=== PATIENT | male | born 1950 | race Two or more races ===

== ENCOUNTER 2020-05-07 08:02 | Inpatient (IN) | payer MEDICARE, MEDICAID ==
[2020-05-07] VITALS (18 sets, daily range): BP systolic 125–148; BP diastolic 74–87
[~2020-05-07] VITALS: Ht 170.2 cm; Wt 104.3 kg
[~2020-05-07 08:02] MED LIST: AMLODIPINE BESY10 MG ORAL; ASPIRIN EC81 MG ORAL; CRESTOR20 MG ORAL; DIOVAN80 MG ORAL; METOPROLOL SUCC25 MG ORAL; PROBIOTIC1 EAC5 PO; ceFAZolin sod 1 GM in NS 55 ML IVPB ONE
[2020-05-07] MEDS ORDERED: Meperidine 25mg/1ml Inj (FOR RIGORS ONLY) IV PRN (09:15)
[2020-05-07] MEDS ORDERED: Acetaminophen (Non formulary) 100 ML IV ONE (09:15)
[2020-05-07] MEDS ORDERED: HYDROcodone/Acetamin 7.5/325 tab ORAL PRN (09:15)
[2020-05-07] MEDS ORDERED: DiphenhydrAMINE 50mg/ml Inj IVP PRN (09:15)
[2020-05-07] MEDS ORDERED: Ketorolac 30mg Inj IV PRN ×2 (09:15)
[2020-05-07] MEDS ORDERED: Midazolam 2mg/2ml Inj IVP PRN (09:15)
[2020-05-07] MEDS ORDERED: oxyCODONE HCL/Acetaminophen 5/325mg ORAL PRN (09:15)
[2020-05-07] MEDS ORDERED: LORazepam Inj 2mg/ml 1ml IV PRN (09:15)
[2020-05-07] MEDS ORDERED: HYDROcodone/Acetamin 5/325 tab ORAL PRN (09:15)
[2020-05-07] MEDS ORDERED: Atropine Sulfate 0.4mg/ml inj IVP PRN (09:15)
[2020-05-07] MEDS ORDERED: LR 1000ml 1,000 ML IVLG SCH (09:15)
[2020-05-07] MEDS ORDERED: Metoclopramide 10mg/2ml Inj IVP PRN (09:15)
[2020-05-07] MEDS ORDERED: Labetalol 5mg/ml 20ml vial IV PRN (09:15)
[2020-05-07] MEDS ORDERED: fentaNYL 100 mcg/2 mL IV PRN (09:15)
--- NOTE | 2020-05-07 09:16 | Anethesia Preoperative Eval ---
Anesthesia Pre-op PMH/ROS General Date of Evaluation: May 07, 2020 Time of Evaluation: 09:34 Anesthesiologist: Trisha ASA Score: ASA 3 Mallampati Score Class I : Soft palate, uvula, fauces, pillars visible Class II: Soft palate, uvula, fauces visible Class III: Soft palate, base of uvula visible Class IV: Only hard plate visible Mallampati Classification: Class II Surgeon: Rashad Diagnosis: Abd Pain Surgical Procedure: TURP, TURBT Family History: no anesthesia problems Allergies: Coded Allergies: No Known Allergies (Unverified , 05/06/20) Medications: see eMAR Patient NPO?: Yes Past Medical History Cardiovascular: Reports: HTN, other - HL Gastrointestinal/Genitourinary: Reports: other - Prostate CA Other: obesity - BMI 37 Anesthesia Pre-op Phys. Exam Physician Exam Last Vital Signs Date Time Temp Pulse Resp B/P (MAP) Pulse Ox O2 Delivery O2 Flow Rate FiO2 05/07/20 08:54 Room Air 05/07/20 08:36 96.9 90 18 148/87 (107) 98 Constitutional: NAD Neurologic: CN 2-12 intact Cardiovascular: RRR Respiratory: CTA Gastrointestinal: S/NT/ND Airway Exam Mallampati Score: Class II ROM: limited Teeth: missing, intact Anesthesia Pre-op A/P Risk Assessment & Plan Assessment: ASA 3 Plan: GA, SED, GlideScope Status Change Before Surgery: No Pre-Antibiotics Dru Grams Ancef IV Time Given: 10:21 Tomasz Rico MD May 07, 2020 09:16
[2020-05-07] MEDS ORDERED: NS Irrig 1000ml ONE (09:34)
[2020-05-07] MEDS ORDERED: NS Irrig 3000ml IRRIG ONE ×8 (09:34→11:00)
[2020-05-07] MEDS ORDERED: LR 1000ml ONE (09:34)
[2020-05-07] MEDS ORDERED: Sterile Water Irrig 1000ml IRRIG ONE (09:34)
[2020-05-07] MEDS ORDERED: Iothalamate Meglumine 60% 50ML INJ ONE (09:38)
[2020-05-07] MEDS ORDERED: fentaNYL 100 mcg/2 mL IV ONE (09:44)
[2020-05-07] MEDS ORDERED: Midazolam 2mg/2ml Inj ONE (09:45)
[2020-05-07] MEDS ORDERED: Lidocaine 1% MPF 10mg/ml 5ml ONE (09:45)
--- NOTE | 2020-05-07 10:39 | Pre-Procedure Note/Attestation ---
Pre-Procedure Note/Attestation Complete Prior to Procedure Planned Procedure: not applicable Procedure Narrative: TURP Indications for Procedure Pre-Operative Diagnosis: Hematuria prostate cancer Attestation I attest that I discussed the nature of the procedure; its benefits; risks and complications; and alternatives (and the risks and benefits of such alternatives), prior to the procedure, with the patient (or the patient's legal sales representative raw fibers). I attest that, if there was a reasonable possibility of needing a blood transfusion, the patient (or the patient's legal sales representative raw fibers) was given the [facility] standardized written summary, pursuant to the Eyad Yeny Blood Safety Act ([place] Health and Safety Code # 1645, as amended). I attest that I re-evaluated the patient just prior to the surgery and that there has been no change in the patient's H&P, except as documented below: Con Solorzano MD May 07, 2020 10:39
[2020-05-07] MEDS ORDERED: Glycopyrrolate 0.2mg/ml 1ml Vial ONE (11:00)
--- NOTE | 2020-05-07 11:16 | Brief Operative Note ---
Immediate Post Operative Note Operative Note Pre-op Diagnosis: Hematuria prostate cancer Procedure: TURP TURBT RPG Post-op Diagnosis: Bladder Tumor Prostate Cancer Hematuria Post-op Diagnosis: same as pre-op Surgeon: Cooper Solorzano Anesthesia: general Specimen: yes Complications: none Condition: stable Fluids: 1000 Estimated Blood Loss: minimal Implant(s) used?: No Con Solorzano MD May 07, 2020 11:16
--- NOTE | 2020-05-07 11:24 | Immediate Post-Op Evaluation ---
Immediate Post-Op Evalulation Immediate Post-Op Evalulation Procedure: TURP, TURBT Date of Evaluation: May 07, 2020 Time of Evaluation: 11:37 IV Fluids: 1100 LR Blood Products: 0 Estimated Blood Loss: 50 Urinary Output: 0 Blood Pressure Systolic: 144 Blood Pressure Diastolic: 84 Pulse Rate: 93 Respiratory Rate: 16 O2 Sat by Pulse Oximetry: 100 Temperature (Fahrenheit): 97 Pain Score (1-10): 2 Nausea: No Vomiting: No Complications 0 Patient Status: awake, reacts, patent, extubated, none Hydration Status: adequate Dru Grams Ancef IV Given Within 1 Hr of Incision: Yes Time Given: 10:21 Tomasz Rico MD May 07, 2020 11:24
[2020-05-07] MEDS: Hydromorphone 0.5mg/0.5ml inj IVP PRN ×2 (11:52→12:30)
[2020-05-07 12:26] LABS: BASOPHILS % (AUTO) 0.8 % (0.0-2.0); EOSINOPHILS % (AUTO) 3.9 % (0.0-3.0); HEMATOCRIT 38.5 % (42.0-52.0); HEMOGLOBIN 12.2 G/DL (14.2-18.0); LYMPHOCYTES % (AUTO) 27.2 % (20.0-45.0); MEAN CORPUSCULAR VOLUME 95 FL (80-99); MONOCYTES % (AUTO) 4.3 % (1.0-10.0); NEUTROPHILS % (AUTO) 63.9 % (45.0-75.0); PLATELET COUNT 341 K/UL (150-450); RED BLOOD COUNT 4.06 M/UL (4.70-6.10); RED CELL DISTRIBUTION WIDTH 12.2 % (11.6-14.8); WHITE BLOOD COUNT 7.7 K/UL (4.8-10.8)
[2020-05-07 12:38] LABS: ANION GAP 10 mmol/L (5-15); BLOOD UREA NITROGEN 13 mg/dL (7-18); CALCIUM 8.9 MG/DL (8.5-10.1); CARBON DIOXIDE 26 MMOL/L (21-32); CHLORIDE 103 MMOL/L (98-107); CREATININE 1.1 MG/DL (0.55-1.30); POTASSIUM 4.1 MMOL/L (3.5-5.1); SODIUM 139 MMOL/L (136-145)
[2020-05-07] MEDS: D5 1/2NS w/KCl 20mEq 1,000 ML IV SCH (14:45)
--- NOTE | 2020-05-07 16:36 | Diagnostic Imaging Report ---
INDICATION: Pain, intraoperative TECHNIQUE: Intraoperative imaging Fluoroscopy time: 21.3 seconds Total dose: 0.91515 mGym2 Total number of images: 5 COMPARISON: None FINDINGS: Intraoperative images document opacification of the right ureter and subsequently the left ureter IMPRESSION: Intraoperative imaging, as described
[2020-05-07] MEDS: cefOXitin Sod 2 GM in D5W 110 ML IV SCH ×2 (16:57→21:57)
[2020-05-07] MEDS: Atorvastatin 20mg tab ORAL SCH (21:09)
[2020-05-08] VITALS: BP 156/98
[2020-05-08] MEDS: D5 1/2NS w/KCl 20mEq 1,000 ML IV SCH (01:45)
[2020-05-08 04:00] VITALS: BP 126/70
[2020-05-08] MEDS: cefOXitin Sod 2 GM in D5W 110 ML IV SCH (04:30)
[2020-05-08 07:06] LABS: CALCIUM 9.1 MG/DL (8.5-10.1); CREATININE 1.9 MG/DL (0.55-1.30); POTASSIUM 4.8 MMOL/L (3.5-5.1)
[2020-05-08 07:24] LABS: BASOPHILS % (AUTO) 0.2 % (0.0-2.0); EOSINOPHILS % (AUTO) 0.1 % (0.0-3.0); HEMATOCRIT 37.4 % (42.0-52.0); HEMOGLOBIN 12.3 G/DL (14.2-18.0); LYMPHOCYTES % (AUTO) 11.8 % (20.0-45.0); MEAN CORPUSCULAR VOLUME 95 FL (80-99); MONOCYTES % (AUTO) 3.8 % (1.0-10.0); NEUTROPHILS % (AUTO) 84.2 % (45.0-75.0); PLATELET COUNT 384 K/UL (150-450); RED BLOOD COUNT 3.93 M/UL (4.70-6.10); RED CELL DISTRIBUTION WIDTH 12.3 % (11.6-14.8); WHITE BLOOD COUNT 14.7 K/UL (4.8-10.8)
[2020-05-08 08:00] VITALS: BP 132/71
--- NOTE | 2020-05-08 08:36 | 48 Hour Post Anesthesia Eval ---
Post Anesthesia Evaluation Procedure: TURP, TURBT Date of Evaluation: May 08, 2020 Time of Evaluation: 08:35 Blood Pressure Systolic: 136 0: 72 Pulse Rate: 68 Respiratory Rate: 22 Temperature (Fahrenheit): 97.6 O2 Sat by Pulse Oximetry: 98 Airway: patent Nausea: No Vomiting: No Pain Intensity: 3 Hydration Status: adequate Cardiopulmonary Status: stable Mental Status/LOC: patient returned to baseline Follow-up Care/Observations: n/a Post-Anesthesia Complications: none Follow-up care needed: N/A Rojelio Crespo MD May 08, 2020 08:36
[2020-05-08] MEDS ORDERED: Aspirin EC 81mg tab ORAL SCH (09:00)
[2020-05-08] MEDS: Metoprolol Succinate XL 25mg tab ORAL SCH (09:21)
[2020-05-08] MEDS: Losartan 50mg tab ORAL SCH (09:22)
--- NOTE | 2020-05-08 10:30 | Consultation ---
DATE OF CONSULTATION: 05/08/2020 INTERNAL MEDICINE CONSULTATION CONSULTING PHYSICIAN: Darrian Wood MD HISTORY OF PRESENT ILLNESS: This is a 70-year-old male who has undergone TURBT and RPG by Dr. Con Solorzano yesterday. Surgery was uncomplicated. Patient has a history of interstitial cystitis and has previously had radiation therapy to his bladder. Patient underwent surgery yesterday. States he is feeling well. He has mild throat irritation. His CBI is ongoing. He has clean clear urine. PAST MEDICAL HISTORY: Hypertension, prostate CA, prostatectomy, bladder erosion. CURRENT MEDICATIONS: Includes amlodipine, Lipitor, losartan, metoprolol. He is no longer on aspirin. REVIEW OF SYSTEMS: Denies any headaches, hematemesis, melena, hematochezia, night sweats, or weight loss. ALLERGIES: None. PHYSICAL EXAMINATION: GENERAL: Reveals a 70-year-old male. HEENT: Unremarkable. LUNGS: Clear breath sounds bilaterally. ABDOMEN: Soft. GENITOURINARY: His Barrett catheter is in place. Urine is clear. EXTREMITIES: There is no edema. NEUROLOGIC: Nonfocal. VITAL SIGNS: Blood pressure is 130/70, heart rate is 94, respirations 18, O2 saturation on room air. LABORATORY DATA: Lab testing shows white count 14,000, hemoglobin of 12. Sodium 125, creatinine 1.9. IMPRESSION: 1. Postop day #1 status post TURBT and TURP. 2. Mild leukocytosis. 3. Azotemia with acute kidney injury. 4. Mild hyperglycemia. DISCUSSION: We will discontinue irrigation today. Discontinue Barrett. We will watch for another 24 hours for retention of urine and follow up laboratories in the a.m. Anticipate discharge in the next 24 hours. We will ensure SCDs in place. Darrian Wood M.D. DR: CHANCE JOB#: [id number] CC:
[2020-05-08 12:00] VITALS: BP 126/77
[2020-05-08] MEDS ORDERED: Tubing IV Secondary IV ONE (13:11)
[2020-05-08] MEDS ORDERED: NS Irrig 3000ml IRRIG ONE (13:11)
[2020-05-08 16:00] VITALS: BP 133/73
[2020-05-08 20:00] VITALS: BP 147/74
[2020-05-08] MEDS: Atorvastatin 20mg tab ORAL SCH (20:06)
[2020-05-09 04:00] VITALS: BP 137/72
[2020-05-09 05:50] LABS: BASOPHILS % (AUTO) 0.5 % (0.0-2.0); EOSINOPHILS % (AUTO) 1.8 % (0.0-3.0); HEMATOCRIT 36.7 % (42.0-52.0); HEMOGLOBIN 11.9 G/DL (14.2-18.0); LYMPHOCYTES % (AUTO) 20.1 % (20.0-45.0); MEAN CORPUSCULAR VOLUME 94 FL (80-99); MONOCYTES % (AUTO) 9.4 % (1.0-10.0); NEUTROPHILS % (AUTO) 68.1 % (45.0-75.0); PLATELET COUNT 317 K/UL (150-450); RED BLOOD COUNT 3.91 M/UL (4.70-6.10); RED CELL DISTRIBUTION WIDTH 12.6 % (11.6-14.8); WHITE BLOOD COUNT 11.1 K/UL (4.8-10.8)
[2020-05-09 06:01] LABS: ANION GAP 9 mmol/L (5-15); BLOOD UREA NITROGEN 13 mg/dL (7-18); CALCIUM 8.9 MG/DL (8.5-10.1); CARBON DIOXIDE 27 MMOL/L (21-32); CHLORIDE 103 MMOL/L (98-107); CREATININE 1.2 MG/DL (0.55-1.30); POTASSIUM 4.1 MMOL/L (3.5-5.1); SODIUM 139 MMOL/L (136-145)
[2020-05-09 08:00] VITALS: BP 142/82
[2020-05-09] MEDS: Losartan 50mg tab ORAL SCH (09:19)
[2020-05-09] MEDS: Metoprolol Succinate XL 25mg tab ORAL SCH (09:19)
--- NOTE | 2020-05-09 09:25 | Pulmonology Progress Note ---
Subjective Interval Events: Barrett dc yesterday; reports urinary incontinence (mild) Constitutional: Reports: no symptoms HEENT: Repors: no symptoms Respiratory: Reports: no symptoms Cardiovascular: Reports: no symptoms Gastrointestinal/Abdominal: Reports: no symptoms Allergies: Coded Allergies: No Known Allergies (Unverified , 05/06/20) Objective Last 24 Hour Vital Signs Date Time Temp Pulse Resp B/P (MAP) Pulse Ox O2 Delivery O2 Flow Rate FiO2 05/09/20 09:19 142/82 05/09/20 09:19 72 142/82 05/09/20 09:18 72 142/82 05/09/20 08:00 98.1 72 20 142/82 (102) 95 05/09/20 04:00 98.3 103 20 137/72 (93) 99 05/08/20 20:19 Room Air 05/08/20 20:00 98.2 88 18 147/74 (98) 96 05/08/20 16:00 97.6 87 16 133/73 (93) 97 05/08/20 12:00 97.3 73 16 126/77 (93) 95 Intake and Output 05/08/20 05/09/20 19:00 07:00 Intake Total 1000 ml 500 ml Output Total 1100 ml 800 ml Balance -100 ml -300 ml Intake Oral 1000 ml 500 ml Output Urine Total 1100 ml 800 ml General Appearance: no acute distress HEENT: normocephalic Respiratory: chest wall non-tender, lungs clear Cardiovascular: normal peripheral pulses, normal rate Abdomen: normal bowel sounds Microbiology Date/Time Source Procedure Growth Status 05/07/20 08:15 Nasal Nares MRSA Culture - Final NO METHICILLIN RESISTANT STAPH AUREUS... Complete Laboratory Tests 05/09/20 05:15: White Blood Count 11.1H, Red Blood Count 3.91L, Hemoglobin 11.9L, Hematocrit 36.7L, Mean Corpuscular Volume 94, Mean Corpuscular Hemoglobin 30.4, Mean Corpuscular Hemoglobin Concent 32.4, Red Cell Distribution Width 12.6, Platelet Count 317, Mean Platelet Volume 7.4, Neutrophils (%) (Auto) 68.1, Lymphocytes (%) (Auto) 20.1, Monocytes (%) (Auto) 9.4, Eosinophils (%) (Auto) 1.8, Basophils (%) (Auto) 0.5, Sodium Level 139, Potassium Level 4.1, Chloride Level 103, Carbon Dioxide Level 27, Anion Gap 9, Blood Urea Nitrogen 13, Creatinine 1.2, Estimat Glomerular Filtration Rate > 60, Glucose Level 132H, Calcium Level 8.9 Current Medications Medications (Trade) Dose Ordered Sig/Britt Route PRN Reason Start Time Stop Time Status Last Admin Dose Admin Acetaminophen (Tylenol) 650 mg Q4H PRN ORAL FEVER 05/07/20 11:15 06/06/20 11:14 Amlodipine Besylate (Norvasc) 10 mg DAILY ORAL 05/08/20 09:00 06/07/20 08:59 05/09/20 09:18 Atorvastatin Calcium (Lipitor) 40 mg QHS ORAL 05/07/20 21:00 08/05/20 20:59 05/08/20 20:06 Hydromorphone HCl (Dilaudid) 2 mg Q3H PRN IVP pain score 7-10 05/07/20 11:15 05/14/20 11:14 05/08/20 10:11 Losartan Potassium (Cozaar) 50 mg DAILY ORAL 05/08/20 09:00 06/07/20 08:59 05/09/20 09:19 Metoprolol Succinate (Toprol XL) 25 mg DAILY ORAL 05/08/20 09:00 08/06/20 08:59 05/09/20 09:19 Ondansetron HCl (Zofran) 4 mg Q6H PRN IVP Nausea & Vomiting 05/07/20 11:15 06/06/20 11:14 Temazepam (RestoriL) 7.5 mg DAILYPRN PRN ORAL Insomnia 05/07/20 11:15 05/14/20 11:14 05/07/20 22:54 Assessment/Plan Assessment/Plan IMPRESSION: 1. Postop day #2 status post TURBT and TURP. 2. Mild leukocytosis. Improved 3. Azotemia with acute kidney injury. Resolved. 4. Mild hyperglycemia. DISCUSSION: Juan Kahn, Leonardo, Macrobid Asha Lemon Omar Syed MD May 09, 2020 09:25
[2020-05-09] MEDS ORDERED: MACRODANTIN100 MG ORAL (09:29)
[2020-05-09] MEDS ORDERED: NORCO 5-325 TA1 EAC1 ORAL (09:29)
[2020-05-09 12:00] VITALS: BP 121/77
--- NOTE | 2020-05-10 18:00 | Operative Note - Dictated ---
DATE OF OPERATION: 05/07/2020 PREOPERATIVE DIAGNOSES: Radiation cystitis with gross hematuria with clot retentions and prostate cancer. POSTOPERATIVE DIAGNOSES: Radiation cystitis with gross hematuria with clot retentions and prostate cancer. OPERATION: 1. Fulguration of the bladder. 2. Multiple bladder biopsies. 3. Transurethral resection of the bladder tumor. 4. Transurethral resection of the prostate. 5. Retrograde pyelogram. MANAGEMENT PROFESSIONAL: Con Solorzano MD ANESTHESIA: General. FINDINGS: Multiple lesions of the bladder resembled inflammation versus tumor, hemorrhagic sides, and necrotic tissue of the prostatic fossa. INDICATIONS FOR SURGERY: The patient is an unfortunate gentleman who had prostatectomy and radiation therapy. He later on developed severe radiation cystitis and multiple episodes of hematuria requiring multiple hospitalizations, bladder irrigations, and Barrett catheter placement. The latest one was in April at [facility] in which the patient underwent some invasive procedures; however, he developed clots and required Barrett catheter placement and treated with irrigations. Treatment options were reviewed in great length including all potential complications. He is aware of the planned procedure and complications such as stress incontinence, bladder perforations, infections, MIP, and . He signed the consent. DESCRIPTION OF PROCEDURE: He was brought to the operating room, placed in lithotomy position, prepped and draped in standard fashion under general anesthesia. A resectoscope was introduced into the bladder. Bladder was copiously irrigated. Retrograde pyelograms were performed showing normal upper ureters. No evidence of obstruction or filling defect. After that, using electrical loop, multiple bladder lesions were resected and sent for pathologic examination. The bladder was copiously fulgurated. was examined, which was wide open; however, there were some small necrotic tissues, which were removed using loop preserving the . The patient tolerated the procedure well. All the bleeding sites were fulgurated, bladder irrigated, and 24 three-way Barrett was placed and left indwelling. The patient tolerated the procedure well. No complications. Con Solorzano M.D. DR: Evelyn JOB#: [id number] CC:
--- NOTE | 2020-05-12 07:55 | Discharge Summary ---
Discharge Summary Discharge Summary _ DATE OF ADMISSION: 05/07/2020 DATE OF DISCHARGE: 05/09/2020 DISCHARGED BY: Dr. Con Solorzano CONSULTANTS: Dr. Kandace Wood BRIEF HOSPITAL COURSE: Patient is a 70-year-old male, who had prostatectomy and radiation therapy. He later on developed severe radiation cystitis and multiple episodes of hematuria requiring multiple hospitalizations, bladder irrigation and Barrett catheter placement. Latest one was in April at [facility] in which patient underwent invasive procedures; however, he developed clots and required Barrett catheter placement and treated with irrigations. Patient was admitted and underwent fulguration of the bladder, multiple bladder biopsy, transurethral resection of the bladder tumor, transurethral resection of prostate. He tolerated procedure well. Postoperatively he was continued on bladder irrigation. He was followed by Dr. Darrian Wood. Home medications resumed. Bladder irrigation was discontinued. Barrett catheter removed. Urine has been clear. Patient was discharged home, on pain medication, stool softeners and an tibiotics. FINAL DIAGNOSES: Radiation cystitis with gross hematuria, clot retention and prostate cancer, status post TURBT and TURP Mild leukocytosis Azotemia with acute kidney injury Mild hyperglycemia OPERATION: 1. Fulguration of the bladder. 2. Multiple bladder biopsies. 3. Transurethral resection of the bladder tumor. 4. Transurethral resection of the prostate. 5. Retrograde pyelogram. DISPOSITION: Patient was discharged home. DISCHARGE MEDICATIONS: Refer to Discharge Medication List. DISCHARGE INSTRUCTIONS: Follow-up in a week. I have been assigned to complete a discharge summary on this account, I was not involved with the patient's management.--KEVIN Carvalho Jacqueline Robles NP May 12, 2020 07:55
== END 2020-05-09 15:20 | disposition home or self-care (01) | DRG 713 ==
LOC: SDSOVERFLO 08:02 → 3E 12:45
PROC: 0VB08ZZ Excision of Prostate, Via Natural or Artificial Opening Endoscopic (ICD-10-PCS; principal; 2020-05-07 09:30)
PROC: 0TBB8ZZ Excision of Bladder, Via Natural or Artificial Opening Endoscopic (ICD-10-PCS; principal; 2020-05-07 09:30)
PROC: 0T5B8ZZ Destruction of Bladder, Via Natural or Artificial Opening Endoscopic (ICD-10-PCS; principal; 2020-05-07 09:30)
PROC: BT14ZZZ Fluoroscopy of Kidneys, Ureters and Bladder (ICD-10-PCS; principal; 2020-05-07 09:30)
DX: C61 Malignant neoplasm of prostate (principal); N30.41 Irradiation cystitis with hematuria; N17.9 Acute kidney failure, unspecified; I10 Essential (primary) hypertension; Y84.2 Radiological procedure and radiotherapy as the cause of abnormal reaction of the patient, or of later complication, without mention of misadventure at the time of the procedure; E66.9 Obesity, unspecified; Z68.30 Body mass index [BMI] 30.0-30.9, adult; R73.9 Hyperglycemia, unspecified
CPT/HCPCS: 36415; 74420; 76000; 80048; 85025; 86850; 86900; 86901; 87081; 94003; 94150; J2180; J2250; J2405; U0002